=== PATIENT | female | born 1955 | race Asian ===

== ENCOUNTER → 2017-03-30 | Outpatient (CLI) | payer MEDICAID ==
[~2017-03-30] MED LIST: ALLO100T PO; ASPI-556 PO; ATOR20TA65 PO; HUM100IN SQ; HUM10VIA SQ; IRON PO; LEVO50TA11 PO; LOSA25TA21 PO; METF850T2 PO
== END | disposition home or self-care (01) ==
LOC: RADPV 10:55
PROVIDERS: ATTEND Hospitalist
DX: N18.3 Chronic kidney disease, stage 3 (moderate) (principal)
CPT/HCPCS: 76770

== ENCOUNTER 2017-05-06 10:32 | Emergency (ER) | payer MEDICAID ==
[~2017-05-06] VITALS: Ht 147.3 cm; Wt 62.7 kg
[2017-05-06] MEDS ORDERED: ALLO100T PO (10:42)
[2017-05-06] MEDS ORDERED: IRON PO (10:42)
[2017-05-06] MEDS ORDERED: LOSA25TA21 PO (10:42)
[2017-05-06] MEDS ORDERED: ASPI-556 PO (10:42)
[2017-05-06] MEDS ORDERED: HUM10VIA SQ (10:42)
[2017-05-06] MEDS ORDERED: HUM100IN SQ (10:42)
[2017-05-06] MEDS ORDERED: METF850T2 PO (10:42)
[2017-05-06] MEDS ORDERED: ATOR20TA65 PO (10:42)
[2017-05-06] MEDS ORDERED: LEVO50TA11 PO (10:42)
[2017-05-06 10:47] LABS: GLUCOSE,POINT OF CARE 235 MG/DL (70-110)
[2017-05-06 12:45] LABS: INFLUENZA TYPE A NEGATIVE FOR TYPE A (NEGATIVE); INFLUENZA TYPE B NEGATIVE FOR TYPE B (NEGATIVE)
[2017-05-06 14:07] LABS: GLUCOSE,POINT OF CARE 140 MG/DL (70-110)
[2017-05-06 14:09] LABS: BASOPHILS # (AUTO) 0.05 K/uL (0.00-0.20); BASOPHILS % (AUTO) 0.5 % (0.0-2.0); EOSINOPHILS # (AUTO) 0.26 K/uL (0.00-0.70); HEMATOCRIT 28.8 % (36-46); HEMOGLOBIN 9.5 g/dL (12.0-16.0); LYMPHOCYTES # (AUTO) 2.1 K/uL (1.0-4.8); MEAN CORPUSCULAR HEMOGLOBIN 30.6 pg (26.0-34.0); MEAN CORPUSCULAR HGB CONC 32.8 G/dL (31.0-37.0); MEAN CORPUSCULAR VOLUME 93 fL (80-100); MONOCYTES # (AUTO) 0.7 K/uL (0.1-1.0); MONOCYTES % (AUTO) 8.4 % (2.0-9.0); NEUTROPHILS # (AUTO) 5.6 K/uL (1.8-7.7); NEUTROPHILS % (AUTO) 64.1 % (40.0-70.0); PLATELET COUNT (AUTO) 227 K/uL (150-450); RED BLOOD CELL COUNT(AUTO) 3.09 MIL/uL (4.00-5.20)
[2017-05-06 14:23] LABS: CALCIUM, TOTAL 9.3 mg/dL (8.8-10.5); CREATININE 1.26 mg/dL (0.60-1.30); POTASSIUM 4.4 mmol/L (3.5-5.1)
[2017-05-06 14:28] LABS: ALBUMIN 3.1 g/dL (3.4-5.0); BILIRUBIN,TOTAL 0.2 mg/dL (0.1-1.0); TOTAL PROTEIN, SERUM 6.7 g/dL (6.4-8.2)
[2017-05-06 15:20] VITALS: BP 148/88
== END 2017-05-06 15:23 | disposition home or self-care (01) ==
LOC: EMS 10:36
DX: J18.9 Pneumonia, unspecified organism (principal); R10.9 Unspecified abdominal pain; E11.9 Type 2 diabetes mellitus without complications; I10 Essential (primary) hypertension; E03.9 Hypothyroidism, unspecified; Z79.4 Long term (current) use of insulin; Z88.8 Allergy status to other drugs, medicaments and biological substances
CPT/HCPCS: 82962; 87804; 93005; 99285